=== PATIENT | female | born 1950 | race Caucasian/White ===

== ENCOUNTER → 2016-11-07 | Outpatient (CLI) | payer MEDICARE, OTHER ==
[~2016-11-07] MED LIST: FLEXERIL5 MG PO; HYZAAR 25 MG-101 TAB PO; HYZAAR 50-12.1 UDTAB PO; PRINIVIL10 MG PO; ULTRAM 50MG TAB50 MG PO; ZANTAC 7575 MG PO
== END ==
LOC: MC.RAD 10:40
DX: Z12.31 Encounter for screening mammogram for malignant neoplasm of breast (principal); Z80.3 Family history of malignant neoplasm of breast

== ENCOUNTER 2017-02-04 09:15 | Emergency (ER) | payer MEDICARE, OTHER ==
[~2017-02-04] VITALS: Ht 162.6 cm; Wt 72.7 kg
[~2017-02-04 09:15] MED LIST changes: -FLEXERIL5 MG PO; -HYZAAR 25 MG-101 TAB PO; -ZANTAC 7575 MG PO
[2017-02-04 09:17] VITALS: BP 137/80; PULSE 69; TEMP 97.6
[2017-02-04] MEDS ORDERED: HYZAAR 25 MG-101 TAB PO (09:22)
[2017-02-04] MEDS ORDERED: ZANTAC 7575 MG PO (09:22)
[2017-02-04] MEDS ORDERED: FLEXERIL5 MG PO (12:09)
== END 2017-02-04 12:36 | disposition home or self-care (01) ==
LOC: COL.ER 09:15
DX: R51 Headache (principal); M54.2 Cervicalgia; I10 Essential (primary) hypertension
CPT/HCPCS: J1885; J3360

== ENCOUNTER → 2017-11-10 | Outpatient (CLI) | payer MEDICARE, OTHER ==
[~2017-11-10] MED LIST changes: +FLEXERIL5 MG PO; +HYZAAR 25 MG-101 TAB PO; +ZANTAC 7575 MG PO
== END ==
LOC: MC.RAD 11:10
DX: Z12.31 Encounter for screening mammogram for malignant neoplasm of breast (principal)

== ENCOUNTER → 2018-12-03 | Outpatient (CLI) | payer MEDICARE, OTHER | LOC: MC.RAD 08:54 | DX: Z12.31 Encounter for screening mammogram for malignant neoplasm of breast (principal) ==

== ENCOUNTER → 2019-10-25 | Outpatient (CLI) | payer MEDICARE, OTHER | LOC: COL.VAS 13:15 | DX: M79.605 Pain in left leg (principal) ==

== ENCOUNTER → 2019-12-14 | Outpatient (CLI) | payer MEDICARE, OTHER | LOC: MC.RAD 09:45 | DX: Z12.31 Encounter for screening mammogram for malignant neoplasm of breast (principal) ==

== ENCOUNTER → 2020-12-21 | Outpatient (CLI) | payer MEDICARE, OTHER | LOC: COL.RAD 07:47 | DX: G44.201 Tension-type headache, unspecified, intractable (principal); Z82.49 Family history of ischemic heart disease and other diseases of the circulatory system ==

== ENCOUNTER → 2021-01-23 | Outpatient (CLI) | payer MEDICARE, OTHER | LOC: MC.RAD 13:30 | DX: Z12.31 Encounter for screening mammogram for malignant neoplasm of breast (principal) ==

== ENCOUNTER → 2022-01-24 | Outpatient (CLI) | payer MEDICARE, OTHER | LOC: MC.RAD 12:37 | DX: Z12.31 Encounter for screening mammogram for malignant neoplasm of breast (principal) ==

== ENCOUNTER 2022-06-01 20:51 | Emergency (ER) | payer MEDICARE, OTHER ==
[~2022-06-01] VITALS: Ht 162.6 cm; Wt 77.3 kg
[2022-06-01 21:10] VITALS: TEMP 97.3
[2022-06-01 22:57] LABS: BASO % 0.7 % (0.0-2.0); EOS # 0.1 K/mm3 (0.0-0.7); EOS % 1.4 % (0.0-4.0); GRAN # 4.7 K/mm3 (1.4-6.5); GRAN % 80.8 % (42.2-75.2); HEMATOCRIT 39.1 % (37.0-47.0); HEMOGLOBIN 13.4 g/dl (12.5-16.0); LYMPH # 0.3 K/mm3 (1.2-3.4); LYMPH % 5.5 % (20.0-51.0); MEAN CELL VOLUME 88 fl (80.0-100.0); MEAN CORPUSCULAR HEMOGLOBIN 30 pg (27-31); MEAN CORPUSCULAR HGB CONC 34 g/dl (33.0-37.0); MONO # 0.7 K/mm3 (0.1-0.6); MONO % 11.3 % (1.7-9.3); PLATELET COUNT 267 K/mm3 (130-400); RED BLOOD COUNT 4.43 M/mm3 (4.10-5.30); REDCELL DISTRIBUTION WIDTH-CV 13.2 % (11.5-14.5)
[2022-06-01 23:19] LABS: ALANINE AMINOTRANSFERASE 23 U/L (0-55); ALKALINE PHOSPHATASE 73 U/L (40-150); ANION GAP 16 mmol/L (7-16); AST,SGOT 18 U/L (5-34); BILIRUBIN,TOTAL 0.8 mg/dL (0.2-1.2); BLOOD UREA NITROGEN 11 mg/dL (10-20); CALCIUM 9.3 mg/dL (8.4-10.2); CARBON DIOXIDE 18 mmol/L (23-31); CHLORIDE 103 mmol/L (98-107); CREATININE, serum 0.76 mg/dL (0.57-1.11); GLUCOSE 111 mg/dL (70-99); POTASSIUM 3.3 mmol/L (3.5-4.5); SODIUM 137 mmol/L (136-145); TOTAL PROTEIN 7.6 gm/dL (6.2-8.1)
[2022-06-01 23:25] LABS: TROPONIN-I < 0.010 ng/mL (0.00-0.033)
[2022-06-02 00:28] LABS: LIPASE 40 U/L (8-78)
[2022-06-02 00:46] VITALS: BP 140/78; PULSE 76
== END 2022-06-02 00:46 | disposition home or self-care (01) ==
LOC: COL.ER 20:51
PROVIDERS: Emergency Medicine
DX: U07.1 COVID-19 (principal); R53.1 Weakness; Z79.899 Other long term (current) drug therapy
CPT/HCPCS: J2765; J7120